=== PATIENT | female | born 1980 | race Caucasian/White ===

== ENCOUNTER 2025-03-24 02:05 | Emergency (ER) | payer MEDICAID ==
[~2025-03-24 02:05] MED LIST: CEPH500T PO; HYDR-3980 PO; NITR-84 PO; ONDA4TAB11 PO
== END 2025-03-24 02:21 | disposition left against medical advice (07) ==
LOC: ER 02:07
DX: R10.9 Unspecified abdominal pain (principal); G43.909 Migraine, unspecified, not intractable, without status migrainosus; Z53.21 Procedure and treatment not carried out due to patient leaving prior to being seen by health care provider